=== PATIENT | male | born 1955 | race Caucasian/White ===

== ENCOUNTER 2018-04-01 19:17 | Emergency (ER) | payer OTHER ==
[~2018-04-01] VITALS: Ht 177.8 cm; Wt 86.2 kg
--- NOTE | 2018-04-01 20:29 | NUR ---
Dr. Spicer at bedside for MSE.
[2018-04-01] MEDS ORDERED: METF-440 PO (20:32)
[2018-04-01] MEDS ORDERED: NEBI5TAB8 PO (20:32)
[2018-04-01] MEDS ORDERED: ASPI81TA31 PO (20:32)
[2018-04-01] MEDS ORDERED: APIX5TAB PO (20:32)
[2018-04-01] MEDS ORDERED: TAMS-3 PO (20:32)
[2018-04-01] MEDS ORDERED: ATOR40TA PO (20:32)
--- NOTE | 2018-04-01 20:38 | NUR ---
Pt provided urine sample, sent to lab.
[2018-04-01 20:47] LABS: *BILIRUBIN,URIN NEGATIVE (NEGATIVE); *BLOOD, URINE 2+ (NEGATIVE); *COLOR,URINE YELLOW (YELLOW); *KETONES,URINE 2+ (NEGATIVE); *PROTEIN,URINE NEGATIVE (NEGATIVE); *UROBILINOGEN,URINE 0.2 E.U./dl (NORMAL); LEUKOCYTE ESTERASE ,URINE TRACE (NEGATIVE); NITRITE, URINE NEGATIVE (NEGATIVE); PH,URINE 5.5 (5.0-8.0); UGLUCOSE NEGATIVE (NEGATIVE)
[2018-04-01 20:51] LABS: BASOPHILS % (AUTO) 0.2 % (0.0-2.0); EOSINOPHILS % (AUTO) 0.1 % (0.0-7.0); HEMATOCRIT 47.9 % (36.7-47.1); HEMOGLOBIN 16.1 g/dL (12.5-16.3); LYMPHOCYTES # (AUTO) 0.8 K/uL (20.0-40.0); LYMPHOCYTES % (AUTO) 5.1 % (20.5-51.5); MEAN CORPUSCULAR HEMOGLOBIN 31.2 uug (23.8-33.4); MEAN CORPUSCULAR HGB CONC 34 g/dL (32.5-36.3); MEAN CORPUSCULAR VOLUME 92.7 fL (73.0-96.2); MONOCYTES # (AUTO) 0.9 K/uL (2.0-10.0); MONOCYTES % (AUTO) 5.9 % (0.0-11.0); NEUTROPHILS # (AUTO) 13.6 K/uL (1.8-8.9); NEUTROPHILS % (AUTO) 88.7 % (38.5-71.5); PLATELET COUNT (AUTO) 197 K/uL (152-348); RED BLOOD CELL COUNT(AUTO) 5.17 MIL/uL (4.06-5.63); WHITE BLOOD COUNT (AUTO) 15.4 K/uL (3.6-10.2)
--- NOTE | 2018-04-01 20:51 | NUR ---
Pt out of ER for CT.
[2018-04-01 20:56] LABS: *CLARITY,URINE HAZY (CLEAR)
[2018-04-01 20:57] LABS: RBC,URINE 20-50 /HPF (0-3)
[2018-04-01 20:57] LABS: CREATININE 1.6 mg/dL (0.6-1.3); POTASSIUM 4.2 mmol/L (3.5-5.1)
[2018-04-01 20:58] LABS: MUCUS,URINE MODERATE /LPF (0-FEW)
--- NOTE | 2018-04-01 21:00 | NUR ---
Pt back to ER from CT.
[2018-04-01 21:02] LABS: BILIRUBIN,DIRECT 0.1 mg/dL (0.0-0.2); BILIRUBIN,TOTAL 0.6 mg/dL (0.2-1.0); TOTAL PROTEIN, SERUM 7.9 g/dL (6.4-8.2)
[2018-04-01] MEDS ORDERED: MAG HYDROX/AL HYDROX/SIMETH 30 ML LIQUID UDC PO ONE (22:15)
[2018-04-01] MEDS ORDERED: MORPHINE SULFATE 4 MG/1 ML DISP.SYRIN IM ONE (22:15)
[2018-04-01] MEDS ORDERED: MORPHINE SULFATE 4 MG/1 ML DISP.SYRIN ONE (22:29)
[2018-04-01] MEDS ORDERED: MORPHINE SULFATE 2 MG/1 ML DISP.SYRIN IV ONE (22:30)
[2018-04-01] MEDS ORDERED: MAG HYDROX/AL HYDROX/SIMETH 30 ML LIQUID UDC ONE (22:31)
[2018-04-01] MEDS: IV NORMAL SALINE 500 ML BAG IV ONE ×2 (22:36→22:37)
--- NOTE | 2018-04-01 22:49 | NUR ---
Xray at bedside.
[2018-04-02 00:50] VITALS: BP 149/79
== END 2018-04-02 00:51 | disposition home or self-care (01) ==
LOC: ER 19:19
DX: N20.0 Calculus of kidney (principal); N28.9 Disorder of kidney and ureter, unspecified; R07.9 Chest pain, unspecified; I48.91 Unspecified atrial fibrillation
CPT/HCPCS: 36415; 71045; 74176; 80048; 80076; 81001; 84484 ×2; 85025; 93005 ×2; 96374; 99285; A4663; J2270; J7040; 70030-TC

== ENCOUNTER 2023-02-15 10:42 | Emergency (ER) | payer MEDICARE, BC ==
[~2023-02-15] VITALS: Ht 177.8 cm; Wt 81.6 kg
[~2023-02-15 10:42] MED LIST: APIX5TAB PO; ASPI81TA31 PO; ATOR40TA PO; METF-440 PO; NEBI5TAB8 PO; TAMS-3 PO
[2023-02-15 12:00] VITALS: BP 129/60; O2SAT 99
== END 2023-02-15 12:10 | disposition home or self-care (01) ==
LOC: ER 10:42
DX: M79.604 Pain in right leg (principal); I48.91 Unspecified atrial fibrillation; E78.5 Hyperlipidemia, unspecified; J44.9 Chronic obstructive pulmonary disease, unspecified; E11.9 Type 2 diabetes mellitus without complications; I10 Essential (primary) hypertension; Z79.82 Long term (current) use of aspirin; Z79.84 Long term (current) use of oral hypoglycemic drugs; Z79.899 Other long term (current) drug therapy
CPT/HCPCS: A4663